=== PATIENT | female | born 1945 | race Caucasian/White ===

== ENCOUNTER 2016-08-04 20:18 | Emergency (ER) | payer BC, MEDICARE ==
[2016-08-04] MEDS ORDERED: diphenhydrAMINE INJ 50MG/ML VIAL (J1200) As Ordered ONE (21:34)
[2016-08-04] MEDS ORDERED: methylPREDNISolone INJ 125 MG/2 ML VIAL (J2930) As Ordered ONE (21:34)
[2016-08-04] MEDS ORDERED: FAMOTIDINE INJ 20MG/2ML VIAL (S0028) As Ordered ONE (21:36)
--- NOTE | 2016-08-04 22:40 | EDDOCDS ---
Nurse's Notes [facility] Name: Sabina Herring Age: 70 yrs Sex: Female : 1945 Arrival Date: 08/04/2016 Time: 20:18 Bed I3 / M3 Private MD: Liza Fabian Diagnosis: Localized swelling, mass and lump, unspecified-LOCALIZED SWELLING TO LEFT CHEEK/FACE Presentation: 08/04 20:24 Presenting complaint: Patient states: last Sunday seen at urgent care for rs3 cough/cold, given Levaquin once a day. noticed left side facial swelling this evening. Onset: The symptoms/episode began/occurred suddenly. This patient has not experienced a previous allergic reaction. Anaphylaxis evaluation, the patient reports or I have noted the following symptoms which indicate a significant risk of anaphylaxis: . The patient has been moved to a treatment room and the charge nurse or attending physician has been notified. Adult Sepsis Screening: The patient does not have new or worsening altered mentation. Adult Sepsis Screening: Patient's respiratory rate is less than 22. Systolic blood pressure is greater than 100. Patient has a qSOFA score of 0- Negative Sepsis Screen. Suicide/Homicide risk assessment- the patient denies having any suicidal and/or homicidal ideations and does not present with any other emotional, behavioral or mental health complaints. Status: Patient is not a escort service attendant or dependent. Transition of care: patient was not received from another setting of care. 20:24 Acuity: FIOR Level 3 rs3 20:24 Method Of Arrival: Walkin/Carried/Asstd rs3 Triage Assessment: 20:37 General: Appears in no apparent distress. Pain: Denies pain. Respiratory: Reports no rs3 respiratory complaints. Historical: - Allergies: PENICILLINS (Anaphylaxis); TETRACYCLINES (Anaphylaxis); Codeine Sulfate (Vomit); - Home Meds: 1. Levaquin 500 mg Oral tab once daily 2. Methylphenidate Oral 72 mg once daily 3. diltiazem HCl 360 mg Oral cp24 1 cap once daily 4. Cymbalta 30 mg Oral cpDR 1 cap once daily 5. ramipril 10 mg Oral cap 1 cap once daily 6. levothyroxine 75 mcg Oral tab 1 tab once daily 7. Ecotrin 325 mg Oral TbEC 1 tab once daily 8. Vitamin C 1,000 mg oral TbER daily 9. Vitamin D Oral 2000 units daily 10. gabapentin 100 mg Oral cap daily 11. Caltrate 600 + D 600 mg (1,500 mg)-800 unit oral chew daily 12. digoxin 125 mcg oral tab 1 tab once daily 13. Crestor 40 mg Oral tab 1 tab once daily 14. Glucosamine 750 mg oral tab daily 15. alprazolam 0.5 mg Oral tab 1 tab daily 16. [place]-3 350 mg-235 mg- 90 mg-597 mg oral cpDR 17. montelukast 10 mg oral tab 1 tab once daily 18. Bentyl 10 mg Oral cap 1 cap 3 times per day 19. Nasacort 55 mcg/actuation Nasal aero 55 mcg/Actuation daily - PMHx: ADHD; Hypertension; Fibromyalgia; Hypothyroidism; [place]; Hypercholesterolemia; Anxiety; - PSHx: Tubal ligation; Tonsillectomy; Stents, Coronary; - Social history: Smoking status: Patient states former smoker of tobacco. No barriers to communication noted, The patient speaks fluent Lao. - Family history: Not pertinent. - : The pt / caregiver states he / she is not on anticoagulants. Home medication list is obtained from the patient. - Exposure Risk Screening:: None identified. Screenin:53 Screening information is obtained from the patient. Fall risk: No risks identified. jmb Assistance ADL's: requires no assistance with activities of daily living. Abuse/DV Screen: The patient / caregiver reports he/she is: not in a situation that causes fear, pain or injury. Nutritional screening: No deficits noted. home support is adequate. 22:38 Advance Directives: Unable to assess Advance Directive status due to pt condition. cp1 Assessment: 21:53 General: Appears in no apparent distress, comfortable, Behavior is appropriate for age, jmb cooperative. Neurological: Level of Consciousness is awake, alert, obeys commands, Oriented to person, place, time, Speech is normal, Facial symmetry appears normal, Facial symmetry: tongue is midline. Cardiovascular: Capillary refill < 3 seconds Heart tones present Pulses are all present. Rhythm is regular. Respiratory: Airway is patent Respiratory effort is even, unlabored, Respiratory pattern is regular, symmetrical, Breath sounds are diminished bilaterally. GI: Abdomen is non- distended Bowel sounds present X 4 quads. Abd is soft and non tender X 4 quads. Derm: Skin is pink, warm & dry. Musculoskeletal: Range of motion intact in all extremities. Vital Signs: 20:22 BP 155 / 57; Pulse 79; Resp 18; Temp 98.9; Pulse Ox 97% ; Weight 57.61 kg; Height 5 ft. elp 3 in. (160.02 cm); Pain 0/10; 22:27 BP 116 / 55; Pulse 56; Resp 18; Temp 98.8(TE); Pulse Ox 99% on R/A; Pain 0/10; jb5 20:22 Body Mass Index 22.50 (57.61 kg, 160.02 cm) elp Vitals: 20:22 Log In Time: August 04, 2016 at 20:20. elp ED Course: 20:20 Patient visited by Kate Ramirez PCA. elp 20:20 Liza Fabian is Private Physician. elp 20:20 Patient moved to Waiting elp 20:22 Patient moved to Pre RCE elp 20:23 Patient visited by Kate Ramirez PCA. elp 20:27 Triage Initiated rs3 20:40 Patient moved to Triage 2 kmg1 21:08 Chasidy Brandon [facility]-C [facility]. dt4 21:08 Jason Knutson DO is Attending Physician. dt4 21:08 Patient visited by Chasidy Brandon PA-C. dt4 21:31 Patient moved to I3 / M3 ct3 21:39 Patient visited by Vaishali Escalante LPN. cp1 21:53 The patient / caregiver is instructed regarding the plan of care and ED course. jmgaby 21:53 Inserted saline lock: 22 gauge in left forearm and blood collected. The patient selena tolerated the procedure well. Labs drawn. (by ED staff). Sent per order to lab. 21:56 Patient visited by Victor M Vidales RN. jmb 22:26 Patient name changed from Sabina\S\\S\Nima\S\ to Sabina\S\ \S\Nima. EDMS 22:27 Patient visited by Gemini Salinas PCA. jb5 22:27 [facility] Payment Agreement was scanned into [employer] and attached to record. zo 22:28 Patient visited by Gemini Salinas PCA. jb5 22:38 Discontinued lock bleeding controlled, pressure dressing applied, No redness/swelling cp1 at site. No procedures done that require assistance. Administered Medications: 21:53 Drug: Solu-MEDROL 125 mg [Solu-Medrol 500 mg intravenous solution (125 mg)] Route: IVP; jmb Site: left hand; 22:38 Follow up: Response: No Adverse Reaction cp1 21:53 Drug: Famotidine 10 mg [famotidine 10 mg/mL intravenous solution] Route: IVPB; Infused jmb Over: 30 mins; Site: left hand; 22:38 Follow up: IV Status: Completed infusion cp1 21:53 Drug: diphenhydrAMINE 25 mg [diphenhydramine 50 mg/mL injection solution (0.5 mL)] jmb Route: IVP; Site: left hand; 22:38 Follow up: Response: No Adverse Reaction cp1 Order Results: There are currently no results for this order. Outcome: 22:25 Discharge ordered by Provider. dt4 22:39 Discharge Assessment: Patient awake, alert and oriented x 3. No cognitive and/or cp1 functional deficits noted. Patient verbalized understanding of disposition instructions. patient administered narcotics - no. The following High Risk Discharge criteria are identified: None. Discharged to home ambulatory, with family. Condition: stable. Discharge instructions given to patient, Instructed on discharge instructions, follow up and referral plans. medication usage, Demonstrated understanding of instructions, medications, Pt was receptive of discharge instructions/ teaching. Prescriptions given X 1. No special radiology studies were completed. Property sent home with patient. :Personal belongings accompany Pt. 22:40 Patient left the ED. cp1 Signatures: Dispatcher [employer] EDMS Cammie Johnson RN RN kmg1 Gemini Salinas, PATIENT FINANCIAL COORDINATOR PATIENT FINANCIAL COORDINATOR jb5 Mike Hernandez RosemaryRN RN rs3 Vaishali Escalante LPN LPN cp1 Gretel Szymanski, PATIENT FINANCIAL COORDINATOR PATIENT FINANCIAL COORDINATOR ct3 Kate Ramirez, PATIENT FINANCIAL COORDINATOR PATIENT FINANCIAL COORDINATOR matthewp Victor M Vidales RN RN jmb Tschudi, Diane, PA-C PA-C dt4 MTDD
--- NOTE | 2016-08-04 22:40 | EDDOCDS ---
Physician Documentation [facility] Name: Sabina Herring Age: 70 yrs Sex: Female : 1945 Arrival Date: 08/04/2016 Time: 20:18 Bed I3 / M3 Private MD: Liza Fabian Disposition: 08/04/16 22:25 Discharged to Home/Self Care. Impression: Localized swelling, mass and lump, unspecified - LOCALIZED SWELLING TO LEFT CHEEK/FACE. - Condition is Stable. - Discharge Instructions: Drug Allergy. - Prescriptions for Prednisone 20 mg Oral Tablet - take 2 tablets by ORAL route once daily for 4 days; 8 tablet. - Medication Reconciliation, Local Pharmacy Hours form. - Follow up: Emergency Department; When: As needed; Reason: Worsening of conditions. Follow up: Private Physician; When: 2 - 3 days; Reason: Wound/Symptom Recheck, Recheck today's complaints, Continuance of care. - Problem is new. - Symptoms are unchanged. Historical: - Allergies: PENICILLINS (Anaphylaxis); TETRACYCLINES (Anaphylaxis); Codeine Sulfate (Vomit); - Home Meds: 1. Levaquin 500 mg Oral tab once daily 2. Methylphenidate Oral 72 mg once daily 3. diltiazem HCl 360 mg Oral cp24 1 cap once daily 4. Cymbalta 30 mg Oral cpDR 1 cap once daily 5. ramipril 10 mg Oral cap 1 cap once daily 6. levothyroxine 75 mcg Oral tab 1 tab once daily 7. Ecotrin 325 mg Oral TbEC 1 tab once daily 8. Vitamin C 1,000 mg oral TbER daily 9. Vitamin D Oral 2000 units daily 10. gabapentin 100 mg Oral cap daily 11. Caltrate 600 + D 600 mg (1,500 mg)-800 unit oral chew daily 12. digoxin 125 mcg oral tab 1 tab once daily 13. Crestor 40 mg Oral tab 1 tab once daily 14. Glucosamine 750 mg oral tab daily 15. alprazolam 0.5 mg Oral tab 1 tab daily 16. [place]-3 350 mg-235 mg- 90 mg-597 mg oral cpDR 17. montelukast 10 mg oral tab 1 tab once daily 18. Bentyl 10 mg Oral cap 1 cap 3 times per day 19. Nasacort 55 mcg/actuation Nasal aero 55 mcg/Actuation daily - PMHx: ADHD; Hypertension; Fibromyalgia; Hypothyroidism; [place]; Hypercholesterolemia; Anxiety; - PSHx: Tubal ligation; Tonsillectomy; Stents, Coronary; - Social history: Smoking status: Patient states former smoker of tobacco. No barriers to communication noted, The patient speaks fluent Sinhala. - Family history: Not pertinent. - : The pt / caregiver states he / she is not on anticoagulants. Home medication list is obtained from the patient. - Exposure Risk Screening:: None identified. Vital Signs: 08/04 20:22 BP 155 / 57; Pulse 79; Resp 18; Temp 98.9; Pulse Ox 97% ; Weight 57.61 kg / 127.01 lbs; elp Height 5 ft. 3 in. (160.02 cm); Pain 0/10; 22:27 BP 116 / 55; Pulse 56; Resp 18; Temp 98.8(TE); Pulse Ox 99% on R/A; Pain 0/10; jb5 20:22 Body Mass Index 22.50 (57.61 kg, 160.02 cm) elp MDM: 21:32 IV Saline Lock ordered. dt4 21:32 Solu-MEDROL 125 mg IVP once ordered. dt4 21:33 Famotidine 10 mg IVPB once over 30 mins; dilute in 50mL of NS ordered. dt4 21:33 diphenhydrAMINE 25 mg IVP once ordered. dt4 21:40 ED course: PT WAS PLACED ON [place] RECENTLY FOR A "SUSPECTED PNEUMONIA" IN AN dt4 ER IN THE [facility] WHILE SHE WAS VISITING A FRIEND. TOOK HER 7TH PILL TODAY AND AN HOUR AFTERWARD, NOTED SWELLING TO THE LEFT CHEEK/FACE. 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 CURRENTLY NO PAIN IN THE AREA OF SWELLING, NO CHEST TIGHTNESS, SHORTNESS OF BREATH, HIVES/ITCHING. . 22:12 Financial registration complete. zo 22:27 [facility] Payment Agreement was scanned into [employer] and attached to record. zo Administered Medications: 21:53 Drug: Solu-MEDROL 125 mg [Solu-Medrol 500 mg intravenous solution (125 mg)] Route: IVP; jmb Site: left hand; 22:38 Follow up: Response: No Adverse Reaction cp1 21:53 Drug: Famotidine 10 mg [famotidine 10 mg/mL intravenous solution] Route: IVPB; Infused jmb Over: 30 mins; Site: left hand; 22:38 Follow up: IV Status: Completed infusion cp1 21:53 Drug: diphenhydrAMINE 25 mg [diphenhydramine 50 mg/mL injection solution (0.5 mL)] jmb Route: IVP; Site: left hand; 22:38 Follow up: Response: No Adverse Reaction cp1 Signatures: Mike Hernandez Rosemary, RN RN rs3 Vaishali Escalante LPN CONTROL CLERK SUBASSEMBLY cp1 Victor M Vidales RN RN jmb Chasidy Brandon PA-C PACarl dt4 The chart was reviewed and I authenticate all verbal orders and agree with the evaluation and treatment provided.Attachments: 22:27 [facility] Payment Agreement zo MTDD
--- NOTE | 2016-08-06 23:41 | EDDOCDS ---
Physician Documentation [facility] Name: Sabina Herring Age: 70 yrs Sex: Female : 1945 Arrival Date: 08/04/2016 Time: 20:18 Bed I3 / M3 Private MD: Liza Fabian Disposition: 08/04/16 22:25 Discharged to Home/Self Care. Impression: Localized swelling, mass and lump, unspecified - LOCALIZED SWELLING TO LEFT CHEEK/FACE. - Condition is Stable. - Discharge Instructions: Drug Allergy. - Prescriptions for Prednisone 20 mg Oral Tablet - take 2 tablets by ORAL route once daily for 4 days; 8 tablet. - Medication Reconciliation, Local Pharmacy Hours form. - Follow up: Emergency Department; When: As needed; Reason: Worsening of conditions. Follow up: Private Physician; When: 2 - 3 days; Reason: Wound/Symptom Recheck, Recheck today's complaints, Continuance of care. - Problem is new. - Symptoms are unchanged. Historical: - Allergies: PENICILLINS (Anaphylaxis); TETRACYCLINES (Anaphylaxis); Codeine Sulfate (Vomit); - Home Meds: 1. Levaquin 500 mg Oral tab once daily 2. Methylphenidate Oral 72 mg once daily 3. diltiazem HCl 360 mg Oral cp24 1 cap once daily 4. Cymbalta 30 mg Oral cpDR 1 cap once daily 5. ramipril 10 mg Oral cap 1 cap once daily 6. levothyroxine 75 mcg Oral tab 1 tab once daily 7. Ecotrin 325 mg Oral TbEC 1 tab once daily 8. Vitamin C 1,000 mg oral TbER daily 9. Vitamin D Oral 2000 units daily 10. gabapentin 100 mg Oral cap daily 11. Caltrate 600 + D 600 mg (1,500 mg)-800 unit oral chew daily 12. digoxin 125 mcg oral tab 1 tab once daily 13. Crestor 40 mg Oral tab 1 tab once daily 14. Glucosamine 750 mg oral tab daily 15. alprazolam 0.5 mg Oral tab 1 tab daily 16. [place]-3 350 mg-235 mg- 90 mg-597 mg oral cpDR 17. montelukast 10 mg oral tab 1 tab once daily 18. Bentyl 10 mg Oral cap 1 cap 3 times per day 19. Nasacort 55 mcg/actuation Nasal aero 55 mcg/Actuation daily - PMHx: ADHD; Hypertension; Fibromyalgia; Hypothyroidism; [place]; Hypercholesterolemia; Anxiety; - PSHx: Tubal ligation; Tonsillectomy; Stents, Coronary; - Social history: Smoking status: Patient states former smoker of tobacco. No barriers to communication noted, The patient speaks fluent Faroese. - Family history: Not pertinent. - : The pt / caregiver states he / she is not on anticoagulants. Home medication list is obtained from the patient. - Exposure Risk Screening:: None identified. Vital Signs: 08/04 20:22 BP 155 / 57; Pulse 79; Resp 18; Temp 98.9; Pulse Ox 97% ; Weight 57.61 kg / 127.01 lbs; elp Height 5 ft. 3 in. (160.02 cm); Pain 0/10; 22:27 BP 116 / 55; Pulse 56; Resp 18; Temp 98.8(TE); Pulse Ox 99% on R/A; Pain 0/10; jb5 20:22 Body Mass Index 22.50 (57.61 kg, 160.02 cm) elp MDM: 21:32 IV Saline Lock ordered. dt4 21:32 Solu-MEDROL 125 mg IVP once ordered. dt4 21:33 Famotidine 10 mg IVPB once over 30 mins; dilute in 50mL of NS ordered. dt4 21:33 diphenhydrAMINE 25 mg IVP once ordered. dt4 21:40 ED course: PT WAS PLACED ON [place] RECENTLY FOR A "SUSPECTED PNEUMONIA" IN AN dt4 ER IN THE [facility] WHILE SHE WAS VISITING A FRIEND. TOOK HER 7TH PILL TODAY AND AN HOUR AFTERWARD, NOTED SWELLING TO THE LEFT CHEEK/FACE. 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 CURRENTLY NO PAIN IN THE AREA OF SWELLING, NO CHEST TIGHTNESS, SHORTNESS OF BREATH, HIVES/ITCHING. . 22:12 Financial registration complete. zo 22:27 [facility] Payment Agreement was scanned into [employer] and attached to record. zo 08/05 12:39 T-Sheet-- Draft Copy was scanned into [employer] and attached to record. gb Administered Medications: 08/04 21:53 Drug: Solu-MEDROL 125 mg [Solu-Medrol 500 mg intravenous solution (125 mg)] Route: IVP; jmb Site: left hand; 22:38 Follow up: Response: No Adverse Reaction cp1 21:53 Drug: Famotidine 10 mg [famotidine 10 mg/mL intravenous solution] Route: IVPB; Infused jmb Over: 30 mins; Site: left hand; 22:38 Follow up: IV Status: Completed infusion cp1 21:53 Drug: diphenhydrAMINE 25 mg [diphenhydramine 50 mg/mL injection solution (0.5 mL)] jmb Route: IVP; Site: left hand; 22:38 Follow up: Response: No Adverse Reaction cp1 Signatures: Tessa Wong, Reg Reg gb Mike Hernandez RosemaryRN RN rs3 Vaishali Escalante LPN ENTRY PROCESSOR cp1 Victor M Vidales RN RN jmb Chasidy Brandon, JOHNNY PACarl dt4 The chart was reviewed and I authenticate all verbal orders and agree with the evaluation and treatment provided.Attachments: 22:27 [facility] Payment Agreement zo 08/05 12:39 T-Sheet-- Draft Copy gb Chart Complete MTDD
--- NOTE | 2016-08-06 23:41 | EDDOCDS ---
Physician Documentation [facility] Name: Sabina Herring Age: 70 yrs Sex: Female : 1945 Arrival Date: 08/04/2016 Time: 20:18 Bed I3 / M3 Private MD: Liza Fabian Disposition: 08/04/16 22:25 Discharged to Home/Self Care. Impression: Localized swelling, mass and lump, unspecified - LOCALIZED SWELLING TO LEFT CHEEK/FACE. - Condition is Stable. - Discharge Instructions: Drug Allergy. - Prescriptions for Prednisone 20 mg Oral Tablet - take 2 tablets by ORAL route once daily for 4 days; 8 tablet. - Medication Reconciliation, Local Pharmacy Hours form. - Follow up: Emergency Department; When: As needed; Reason: Worsening of conditions. Follow up: Private Physician; When: 2 - 3 days; Reason: Wound/Symptom Recheck, Recheck today's complaints, Continuance of care. - Problem is new. - Symptoms are unchanged. Historical: - Allergies: PENICILLINS (Anaphylaxis); TETRACYCLINES (Anaphylaxis); Codeine Sulfate (Vomit); - Home Meds: 1. Levaquin 500 mg Oral tab once daily 2. Methylphenidate Oral 72 mg once daily 3. diltiazem HCl 360 mg Oral cp24 1 cap once daily 4. Cymbalta 30 mg Oral cpDR 1 cap once daily 5. ramipril 10 mg Oral cap 1 cap once daily 6. levothyroxine 75 mcg Oral tab 1 tab once daily 7. Ecotrin 325 mg Oral TbEC 1 tab once daily 8. Vitamin C 1,000 mg oral TbER daily 9. Vitamin D Oral 2000 units daily 10. gabapentin 100 mg Oral cap daily 11. Caltrate 600 + D 600 mg (1,500 mg)-800 unit oral chew daily 12. digoxin 125 mcg oral tab 1 tab once daily 13. Crestor 40 mg Oral tab 1 tab once daily 14. Glucosamine 750 mg oral tab daily 15. alprazolam 0.5 mg Oral tab 1 tab daily 16. [place]-3 350 mg-235 mg- 90 mg-597 mg oral cpDR 17. montelukast 10 mg oral tab 1 tab once daily 18. Bentyl 10 mg Oral cap 1 cap 3 times per day 19. Nasacort 55 mcg/actuation Nasal aero 55 mcg/Actuation daily - PMHx: ADHD; Hypertension; Fibromyalgia; Hypothyroidism; [place]; Hypercholesterolemia; Anxiety; - PSHx: Tubal ligation; Tonsillectomy; Stents, Coronary; - Social history: Smoking status: Patient states former smoker of tobacco. No barriers to communication noted, The patient speaks fluent Setswana. - Family history: Not pertinent. - : The pt / caregiver states he / she is not on anticoagulants. Home medication list is obtained from the patient. - Exposure Risk Screening:: None identified. Vital Signs: 08/04 20:22 BP 155 / 57; Pulse 79; Resp 18; Temp 98.9; Pulse Ox 97% ; Weight 57.61 kg / 127.01 lbs; elp Height 5 ft. 3 in. (160.02 cm); Pain 0/10; 22:27 BP 116 / 55; Pulse 56; Resp 18; Temp 98.8(TE); Pulse Ox 99% on R/A; Pain 0/10; jb5 20:22 Body Mass Index 22.50 (57.61 kg, 160.02 cm) elp MDM: 21:32 IV Saline Lock ordered. dt4 21:32 Solu-MEDROL 125 mg IVP once ordered. dt4 21:33 Famotidine 10 mg IVPB once over 30 mins; dilute in 50mL of NS ordered. dt4 21:33 diphenhydrAMINE 25 mg IVP once ordered. dt4 21:40 ED course: PT WAS PLACED ON [place] RECENTLY FOR A "SUSPECTED PNEUMONIA" IN AN dt4 ER IN THE [facility] WHILE SHE WAS VISITING A FRIEND. TOOK HER 7TH PILL TODAY AND AN HOUR AFTERWARD, NOTED SWELLING TO THE LEFT CHEEK/FACE. 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 CURRENTLY NO PAIN IN THE AREA OF SWELLING, NO CHEST TIGHTNESS, SHORTNESS OF BREATH, HIVES/ITCHING. . 22:12 Financial registration complete. zo 22:27 [facility] Payment Agreement was scanned into [employer] and attached to record. zo 08/05 12:39 T-Sheet-- Draft Copy was scanned into [employer] and attached to record. gb Administered Medications: 08/04 21:53 Drug: Solu-MEDROL 125 mg [Solu-Medrol 500 mg intravenous solution (125 mg)] Route: IVP; jmb Site: left hand; 22:38 Follow up: Response: No Adverse Reaction cp1 21:53 Drug: Famotidine 10 mg [famotidine 10 mg/mL intravenous solution] Route: IVPB; Infused jmb Over: 30 mins; Site: left hand; 22:38 Follow up: IV Status: Completed infusion cp1 21:53 Drug: diphenhydrAMINE 25 mg [diphenhydramine 50 mg/mL injection solution (0.5 mL)] jmb Route: IVP; Site: left hand; 22:38 Follow up: Response: No Adverse Reaction cp1 Signatures: Tessa Wong, Reg Reg gb Mike Hernandez RosemaryRN RN rs3 Vaishali Escalante LPN COLORECTAL SURGEON cp1 Victor M Vidales RN RN jmb Chasidy Brandon, JOHNNY PACarl dt4 The chart was reviewed and I authenticate all verbal orders and agree with the evaluation and treatment provided.Attachments: 22:27 [facility] Payment Agreement zo 08/05 12:39 T-Sheet-- Draft Copy gb Chart Complete MTDD
--- NOTE | 2016-08-06 23:41 | EDDOCDS ---
Nurse's Notes [facility] Name: Sabina Herring Age: 70 yrs Sex: Female : 1945 Arrival Date: 08/04/2016 Time: 20:18 Bed I3 / M3 Private MD: Liza Fabian Diagnosis: Localized swelling, mass and lump, unspecified-LOCALIZED SWELLING TO LEFT CHEEK/FACE Presentation: 08/04 20:24 Presenting complaint: Patient states: last Sunday seen at urgent care for rs3 cough/cold, given Levaquin once a day. noticed left side facial swelling this evening. Onset: The symptoms/episode began/occurred suddenly. This patient has not experienced a previous allergic reaction. Anaphylaxis evaluation, the patient reports or I have noted the following symptoms which indicate a significant risk of anaphylaxis: . The patient has been moved to a treatment room and the charge nurse or attending physician has been notified. Adult Sepsis Screening: The patient does not have new or worsening altered mentation. Adult Sepsis Screening: Patient's respiratory rate is less than 22. Systolic blood pressure is greater than 100. Patient has a qSOFA score of 0- Negative Sepsis Screen. Suicide/Homicide risk assessment- the patient denies having any suicidal and/or homicidal ideations and does not present with any other emotional, behavioral or mental health complaints. Status: Patient is not a student services advisor or dependent. Transition of care: patient was not received from another setting of care. 20:24 Acuity: FIOR Level 3 rs3 20:24 Method Of Arrival: Walkin/Carried/Asstd rs3 Triage Assessment: 20:37 General: Appears in no apparent distress. Pain: Denies pain. Respiratory: Reports no rs3 respiratory complaints. Historical: - Allergies: PENICILLINS (Anaphylaxis); TETRACYCLINES (Anaphylaxis); Codeine Sulfate (Vomit); - Home Meds: 1. Levaquin 500 mg Oral tab once daily 2. Methylphenidate Oral 72 mg once daily 3. diltiazem HCl 360 mg Oral cp24 1 cap once daily 4. Cymbalta 30 mg Oral cpDR 1 cap once daily 5. ramipril 10 mg Oral cap 1 cap once daily 6. levothyroxine 75 mcg Oral tab 1 tab once daily 7. Ecotrin 325 mg Oral TbEC 1 tab once daily 8. Vitamin C 1,000 mg oral TbER daily 9. Vitamin D Oral 2000 units daily 10. gabapentin 100 mg Oral cap daily 11. Caltrate 600 + D 600 mg (1,500 mg)-800 unit oral chew daily 12. digoxin 125 mcg oral tab 1 tab once daily 13. Crestor 40 mg Oral tab 1 tab once daily 14. Glucosamine 750 mg oral tab daily 15. alprazolam 0.5 mg Oral tab 1 tab daily 16. Stanley-3 350 mg-235 mg- 90 mg-597 mg oral cpDR 17. montelukast 10 mg oral tab 1 tab once daily 18. Bentyl 10 mg Oral cap 1 cap 3 times per day 19. Nasacort 55 mcg/actuation Nasal aero 55 mcg/Actuation daily - PMHx: ADHD; Hypertension; Fibromyalgia; Hypothyroidism; [place]; Hypercholesterolemia; Anxiety; - PSHx: Tubal ligation; Tonsillectomy; Stents, Coronary; - Social history: Smoking status: Patient states former smoker of tobacco. No barriers to communication noted, The patient speaks fluent Estonian. - Family history: Not pertinent. - : The pt / caregiver states he / she is not on anticoagulants. Home medication list is obtained from the patient. - Exposure Risk Screening:: None identified. Screenin:53 Screening information is obtained from the patient. Fall risk: No risks identified. jmb Assistance ADL's: requires no assistance with activities of daily living. Abuse/DV Screen: The patient / caregiver reports he/she is: not in a situation that causes fear, pain or injury. Nutritional screening: No deficits noted. home support is adequate. 22:38 Advance Directives: Unable to assess Advance Directive status due to pt condition. cp1 Assessment: 21:53 General: Appears in no apparent distress, comfortable, Behavior is appropriate for age, jmb cooperative. Neurological: Level of Consciousness is awake, alert, obeys commands, Oriented to person, place, time, Speech is normal, Facial symmetry appears normal, Facial symmetry: tongue is midline. Cardiovascular: Capillary refill < 3 seconds Heart tones present Pulses are all present. Rhythm is regular. Respiratory: Airway is patent Respiratory effort is even, unlabored, Respiratory pattern is regular, symmetrical, Breath sounds are diminished bilaterally. GI: Abdomen is non- distended Bowel sounds present X 4 quads. Abd is soft and non tender X 4 quads. Derm: Skin is pink, warm & dry. Musculoskeletal: Range of motion intact in all extremities. Vital Signs: 20:22 BP 155 / 57; Pulse 79; Resp 18; Temp 98.9; Pulse Ox 97% ; Weight 57.61 kg; Height 5 ft. elp 3 in. (160.02 cm); Pain 0/10; 22:27 BP 116 / 55; Pulse 56; Resp 18; Temp 98.8(TE); Pulse Ox 99% on R/A; Pain 0/10; jb5 20:22 Body Mass Index 22.50 (57.61 kg, 160.02 cm) elp Vitals: 20:22 Log In Time: August 04, 2016 at 20:20. elp ED Course: 20:20 Patient visited by Kate Ramirez PCA. elp 20:20 Liza Fabian is Private Physician. elp 20:20 Patient moved to Waiting elp 20:22 Patient moved to Pre RCE elp 20:23 Patient visited by Kate Ramirez PCA. elp 20:27 Triage Initiated rs3 20:40 Patient moved to Triage 2 kmg1 21:08 [facility] dt4 21:08 Jason Knutson DO is Attending Physician. dt4 21:08 Patient visited by Chasidy Brandon PA-C. dt4 21:31 Patient moved to I3 / M3 ct3 21:39 Patient visited by Vaishali Escalante LPN. cp1 21:53 The patient / caregiver is instructed regarding the plan of care and ED course. jmgaby 21:53 Inserted saline lock: 22 gauge in left forearm and blood collected. The patient selena tolerated the procedure well. Labs drawn. (by ED staff). Sent per order to lab. 21:56 Patient visited by VictorM Vidales RN. jmb 22:26 Patient name changed from Sabina\S\\S\Nima\S\ to Sabina\S\ \S\Nima. EDMS 22:27 Patient visited by Gemiin Salinas PCA. jb5 22:27 [facility] Payment Agreement was scanned into [employer] and attached to record. zo 22:28 Patient visited by Gemini Salinas PCA. jb5 22:38 Discontinued lock bleeding controlled, pressure dressing applied, No redness/swelling cp1 at site. No procedures done that require assistance. 08/05 12:39 T-Sheet-- Draft Copy was scanned into [employer] and attached to record. gb Administered Medications: 08/04 21:53 Drug: Solu-MEDROL 125 mg [Solu-Medrol 500 mg intravenous solution (125 mg)] Route: IVP; jmb Site: left hand; 22:38 Follow up: Response: No Adverse Reaction cp1 21:53 Drug: Famotidine 10 mg [famotidine 10 mg/mL intravenous solution] Route: IVPB; Infused jmb Over: 30 mins; Site: left hand; 22:38 Follow up: IV Status: Completed infusion cp1 21:53 Drug: diphenhydrAMINE 25 mg [diphenhydramine 50 mg/mL injection solution (0.5 mL)] jmb Route: IVP; Site: left hand; 22:38 Follow up: Response: No Adverse Reaction cp1 Order Results: There are currently no results for this order. Outcome: 22:25 Discharge ordered by Provider. dt4 22:39 Discharge Assessment: Patient awake, alert and oriented x 3. No cognitive and/or cp1 functional deficits noted. Patient verbalized understanding of disposition instructions. patient administered narcotics - no. The following High Risk Discharge criteria are identified: None. Discharged to home ambulatory, with family. Condition: stable. Discharge instructions given to patient, Instructed on discharge instructions, follow up and referral plans. medication usage, Demonstrated understanding of instructions, medications, Pt was receptive of discharge instructions/ teaching. Prescriptions given X 1. No special radiology studies were completed. Property sent home with patient. :Personal belongings accompany Pt. 22:40 Patient left the ED. cp1 Signatures: Dispatcher [employer] EDMS Cammie Johnson, RN RN kmg1 Tessa Wong, Reg Reg Gemini Carrasco, [facility] NURSE PRACTITIONER [facility] NURSE PRACTITIONER jb5 Mike Hernandez RosemaryRN RN rs3 Vaishali Escalante LPN [employer]PER[employer] cp1 Gretel Szymanski, [facility] NURSE PRACTITIONER [facility] NURSE PRACTITIONER ct3 Kate Ramirez, [facility] NURSE PRACTITIONER [facility] NURSE PRACTITIONER elp Victor M Vidales,JESSY RN nikkib Chasidy Brandon, PA-C PA-C dt4 Chart Complete MTDD
== END 2016-08-04 22:40 | disposition home or self-care (01) ==
LOC: M ED 20:18
DX: R22.0 Localized swelling, mass and lump, head (principal); T36.95XA Adverse effect of unspecified systemic antibiotic, initial encounter; Y92.89 Other specified places as the place of occurrence of the external cause; I10 Essential (primary) hypertension; M79.7 Fibromyalgia; F90.9 Attention-deficit hyperactivity disorder, unspecified type; I25.2 Old myocardial infarction; E03.9 Hypothyroidism, unspecified; E78.00 Pure hypercholesterolemia, unspecified; F41.9 Anxiety disorder, unspecified; Z79.899 Other long term (current) drug therapy; Z79.2 Long term (current) use of antibiotics; Z88.0 Allergy status to penicillin; Z88.1 Allergy status to other antibiotic agents; Z88.5 Allergy status to narcotic agent; Z87.891 Personal history of nicotine dependence
CPT/HCPCS: 36415; 96365; 96375; 99284; J1200; J2930

== ENCOUNTER → 2016-11-15 | Outpatient (REF) | payer MEDICARE | LOC: M LAB REF 13:26 | PROVIDERS: ATTEND Nurse Practitioner Adult Health | DX: I48.0 Paroxysmal atrial fibrillation (principal) ==

== ENCOUNTER → 2016-12-20 | Outpatient (CLI) | payer MEDICARE ==
--- NOTE | 2016-12-20 17:35 | REP ---
Chest two views HISTORY: Cataract Comparison: 01/25/2012 The lungs are clear. The heart is normal in size. The pulmonary vasculature is normal in appearance. The bony structure is intact. IMPRESSION: No acute disease. Signed by Allen Mathias MD 12/20/2016 05:25 P
== END ==
LOC: M RAD 16:40
PROVIDERS: ATTEND Ophthalmology
DX: H25.12 Age-related nuclear cataract, left eye (principal)

== ENCOUNTER → 2017-02-21 | Outpatient (CLI) | payer MEDICARE ==
[~2017-02-21] MED LIST: ALPR0.5T3 PO; CALTCHW4 PO; CONC36TA4 PO; CRES40TA PO; DIGO0.12 PO; DILT1CAP46 PO; DULO1CAP2 PO; ECOT325T7 PO; FISH1000 PO; GABA-279 PO; GLUC1CAP10 PO; MONT10TA2 PO; RAMI10CA PO; SYNT75TA PO; TOBRSUS8 OS; VITA100067 PO; VITA500T PO
== END ==
LOC: M SMT 11:20
PROVIDERS: ATTEND Ophthalmology
DX: Z13.9 Encounter for screening, unspecified (principal)

== ENCOUNTER 2017-03-28 11:48 | Day surgery (SDC) | payer MEDICARE ==
[~2017-03-28] VITALS: Ht 161.3 cm; Wt 59.9 kg
[~2017-03-28 11:48] MED LIST changes: +ACETAMINOPHEN 325 MG TAB PO PRN; +BSS with VANC/TOB/EPI for EYE CASES IR ONE; +CYCLOPENTOLATE 2% OPHTH SOLN 2ML BTL XX ONE; +HEALON DUET (HEALON 10MG/ML 0.55ML & HEALON ENDOCOAT 30MG/ML 0.85ML) As Ordered ONE; +LIDOCAINE 1% SDV 5 ML VIAL As Ordered ONE; +LIDOCAINE 3.5 % 1ML OPHTH TOPICAL GEL OU ONE; +MOXIFLOXACIN IN BSS 0.25MG/0.25ML INTRACAMERAL INJ (OR EYE ONLY)(J2280) As Ordered ONE; +OFLOXACIN 0.3 % (OCUFLOX) OPTH SOL 5ML XX ONE; +PHENYLEPHRINE 2.5% OPHTH SOL 2ML XX ONE; +POVIDONE-IODINE 5% OPHTH PREP SOL 30ML As Ordered ONE; +PROPARACAINE 0.5% OPHTH SOL 15ML XX PRN; +TRIAMCINOLONE PRES FR 40 MG/ML 1ML(TRIESENCE)(OR EYE ONLY)(J3300 PER 1MG) As Ordered ONE; +TROPICAMIDE 1% OPHTH SOLN 2ML XX ONE
[2017-03-28] MEDS ORDERED: D5W/0.2% SODIUM CHLORIDE 250 ML IV ONE (12:00)
[2017-03-28] MEDS ORDERED: MIDAZOLAM INJ 2 MG/2 ML VIAL (J2250) As Ordered ONE ×2 (12:52→13:22)
[2017-03-28] MEDS ORDERED: fentaNYL 100 MCG/2 ML INJECTION (J3010) As Ordered ONE (12:54)
[2017-03-28] MEDS ORDERED: ONDANSETRON 4MG/2ML VIAL (J2405) As Ordered ONE (12:58)
[2017-03-28] MEDS ORDERED: dexameTHASONE 4 MG/ML 1ML VIAL (J1100) As Ordered ONE (12:59)
[2017-03-28] MEDS ORDERED: dexameTHASONE 4 MG/ML 1ML VIAL (J1100) IV ONE (13:15)
[2017-03-28] MEDS ORDERED: ONDANSETRON 4MG/2ML VIAL (J2405) IV ONE (13:15)
[2017-03-28] MEDS ORDERED: ACETYLCHOLINE OPHTH SOLN 1% 2ML (MIOCHOL-E) As Ordered ONE (13:34)
[2017-03-28] MEDS ORDERED: HEALON DUET (HEALON 10MG/ML 0.55ML & HEALON ENDOCOAT 30MG/ML 0.85ML) As Ordered ONE (13:35)
[2017-03-28] MEDS ORDERED: AcetaZOLAMIDE 500 MG ER CAP As Ordered ONE (14:01)
--- NOTE | 2017-03-28 14:14 | RO ---
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 PROCEDURE: Removal of intraocular lens, placement of capsular tension ring and intraocular lens exchange with Hoya +20.5 diopter in left eye. SURGEON: Geoffrey Estrada MD BLUEPRINT PROCESSOR: None. COMPLICATIONS: None. DESCRIPTION OF PROCEDURE: The patient was brought to the3 operating room and laid in the supine position. The eye was prepped and draped in a sterile fashion for ophthalmic surgery. The lid was speculum was placed. Side port incision was made, EndoCoat was injected into the anterior chamber and then a temporal clear corneal incision was made and Healon was placed underneath the capsule. After great effort, the capsule was released from the lens, taking care not to extend the zonular dialysis, which was noted to be present between 9 and 11 o'clock positions. After the lens was freed from all the adhesions, it was carefully expressed into the anterior chamber and thereby cut with the help of the lens cutters. The pieces were removed. After this, the intraocular lens was placed under Healon and right afterwards a capsular tension ring was placed. The lens was noted to be well centered, however, there still was remaining anterior capsular fibrosis along the visual axis, but the lens was well centered. At the end of the case, cefuroxime was given intracamerally. The wound was hydrated. Lid speculum was removed. Case was discussed in great detail in the waiting area with the patient. SHAQUILLE
[2017-03-28] MEDS ORDERED: LR 1,000 ML IV SCH (14:15)
[2017-03-28] MEDS ORDERED: KETOROLAC 0.5% OPHTH SOLN XX ONE (14:15)
[2017-03-28] MEDS ORDERED: ONDANSETRON 4MG/2ML VIAL (J2405) IV PRN (14:15)
[2017-03-28] MEDS ORDERED: AcetaZOLAMIDE 500 MG ER CAP PO ONE (14:15)
[2017-03-28] MEDS ORDERED: TRIMETHOBENZAMIDE 300 MG CAP PO PRN (14:15)
[2017-03-28 14:45] VITALS: BP 120/57
== END 2017-03-28 14:50 | disposition home or self-care (01) ==
LOC: M SDC 11:48
PROVIDERS: ATTEND Ophthalmology
DX: T85.29XA Other mechanical complication of intraocular lens, initial encounter (principal); I10 Essential (primary) hypertension; E78.5 Hyperlipidemia, unspecified; E03.9 Hypothyroidism, unspecified; F90.9 Attention-deficit hyperactivity disorder, unspecified type; Z79.899 Other long term (current) drug therapy; M79.7 Fibromyalgia; I25.2 Old myocardial infarction; Z98.61 Coronary angioplasty status; Z88.2 Allergy status to sulfonamides; Z88.8 Allergy status to other drugs, medicaments and biological substances
CPT/HCPCS: 66986; J1100; J2250; J2280; J2405; J3010; J3300; L8699; V2632

== ENCOUNTER → 2017-05-29 | Outpatient (REF) | payer MEDICARE ==
[~2017-05-29] MED LIST changes: -ACETAMINOPHEN 325 MG TAB PO PRN; -BSS with VANC/TOB/EPI for EYE CASES IR ONE; -CYCLOPENTOLATE 2% OPHTH SOLN 2ML BTL XX ONE; -HEALON DUET (HEALON 10MG/ML 0.55ML & HEALON ENDOCOAT 30MG/ML 0.85ML) As Ordered ONE; -LIDOCAINE 1% SDV 5 ML VIAL As Ordered ONE; -LIDOCAINE 3.5 % 1ML OPHTH TOPICAL GEL OU ONE; -MOXIFLOXACIN IN BSS 0.25MG/0.25ML INTRACAMERAL INJ (OR EYE ONLY)(J2280) As Ordered ONE; -OFLOXACIN 0.3 % (OCUFLOX) OPTH SOL 5ML XX ONE; -PHENYLEPHRINE 2.5% OPHTH SOL 2ML XX ONE; -POVIDONE-IODINE 5% OPHTH PREP SOL 30ML As Ordered ONE; -PROPARACAINE 0.5% OPHTH SOL 15ML XX PRN; -TRIAMCINOLONE PRES FR 40 MG/ML 1ML(TRIESENCE)(OR EYE ONLY)(J3300 PER 1MG) As Ordered ONE; -TROPICAMIDE 1% OPHTH SOLN 2ML XX ONE
== END ==
LOC: M LAB REF 17:39
PROVIDERS: ATTEND Nurse Practitioner Adult Health
DX: K13.0 Diseases of lips (principal)

== ENCOUNTER 2017-06-20 10:28 | Day surgery (SDC) | payer MEDICARE ==
[~2017-06-20] VITALS: Ht 160 cm; Wt 60.8 kg
[~2017-06-20 10:28] MED LIST changes: +ACETAMINOPHEN 325 MG TAB PO PRN; +BSS with VANC/TOB/EPI for EYE CASES IR ONE; +CYCLOPENTOLATE 2% OPHTH SOLN 2ML BTL OD ONE; +LIDOCAINE 3.5 % 1ML OPHTH TOPICAL GEL OU ONE; +PHENYLEPHRINE 2.5% OPHTH SOL 2ML OD ONE; +PROPARACAINE 0.5% OPHTH SOL 15ML OD PRN; +TROPICAMIDE 1% OPHTH SOLN 2ML OD ONE; +VITA100072 PO; +XIID5DRO OU
[2017-06-20] MEDS ORDERED: AcetaZOLAMIDE 500 MG ER CAP PO ONE (10:45)
[2017-06-20] MEDS ORDERED: TRIMETHOBENZAMIDE 300 MG CAP PO PRN (10:45)
[2017-06-20] MEDS ORDERED: ASPI81TA85 PO (11:48)
[2017-06-20] MEDS ORDERED: HEALON DUET (HEALON 10MG/ML 0.55ML & HEALON ENDOCOAT 30MG/ML 0.85ML) As Ordered ONE (12:18)
[2017-06-20] MEDS ORDERED: TRIAMCINOLONE PRES FR 40 MG/ML 1ML(TRIESENCE)(OR EYE ONLY)(J3300 PER 1MG) As Ordered ONE (12:18)
[2017-06-20] MEDS ORDERED: LIDOCAINE 1% SDV 5 ML VIAL As Ordered ONE (12:19)
[2017-06-20] MEDS ORDERED: POVIDONE-IODINE 5% OPHTH PREP SOL 30ML As Ordered ONE (12:20)
[2017-06-20] MEDS ORDERED: MIDAZOLAM INJ 2 MG/2 ML VIAL (J2250) As Ordered ONE (12:21)
[2017-06-20] MEDS ORDERED: fentaNYL 100 MCG/2 ML INJECTION (J3010) As Ordered ONE (12:21)
[2017-06-20] MEDS ORDERED: CEFUROXIME 1MG/0.1ML INTRACAMERAL INJ As Ordered ONE (12:31)
[2017-06-20] MEDS ORDERED: PROPOFOL 200 MG/20 ML VIAL As Ordered ONE (12:41)
[2017-06-20] MEDS ORDERED: dexameTHASONE 4 MG/ML 1ML VIAL (J1100) As Ordered ONE (12:52)
[2017-06-20] MEDS ORDERED: ONDANSETRON 4MG/2ML VIAL (J2405) As Ordered ONE (12:53)
--- NOTE | 2017-06-20 13:02 | RO ---
DATE OF PROCEDURE: 06/20/2017 PREPROCEDURE DIAGNOSIS: Cataract of right eye. POSTPROCEDURE DIAGNOSIS: Cataract of right eye. PROCEDURE: Femtosecond laser and phacoemulsification of the intraocular lens with lens implantation right eye. Intraocular lens power used was Hoya, 19 diopter. SURGEON: Geoffrey Estrada MD ROADWAY ENGINEER: None. ANESTHESIA: Local IV standby. FINDINGS: Cataract of right eye. COMPLICATIONS: None. DESCRIPTION OF PROCEDURE: The patient was brought to the operating room and laid in supine position. A lid speculum was placed, and patient was brought under the femtosecond laser. After the satisfactory placement of the patient interface, primary incision, secondary incision, and arcuate incisions with lens fragmentation was done without any complication per plan. The patients interface was then removed and lid speculum removed. Patient was placed under the microscope. The eye was prepped and draped in a sterile fashion for ophthalmic surgery. Lid speculum was placed. The secondary incision was opened, and EndoCoat was injected into the anterior chamber. The temporal clear corneal incision was then opened and capsulorrhexis removed, followed by hydrodissection. This was followed by phacoemulsification of the lens within the capsular bag. Cortical material was then aspirated, and Healon was injected into the capsular bag. Intraocular lens was then placed. Excess Healon was aspirated. Wound was hydrated. The lid speculum was removed, and patient was returned to the recovery room in stable condition.
[2017-06-20 14:00] VITALS: BP 118/57
== END 2017-06-20 14:00 | disposition home or self-care (01) ==
LOC: M SDC 10:28
PROVIDERS: ATTEND Ophthalmology
DX: H25.9 Unspecified age-related cataract (principal); I10 Essential (primary) hypertension; I25.2 Old myocardial infarction; E78.5 Hyperlipidemia, unspecified; Z79.899 Other long term (current) drug therapy; E03.9 Hypothyroidism, unspecified; Z88.0 Allergy status to penicillin; Z88.8 Allergy status to other drugs, medicaments and biological substances; Z98.61 Coronary angioplasty status; F90.9 Attention-deficit hyperactivity disorder, unspecified type; Z87.891 Personal history of nicotine dependence
CPT/HCPCS: 66984; J1100; J2250; J2405; J3010; J3300; V2632

== ENCOUNTER → 2018-05-29 | Outpatient (REF) | payer MEDICARE ==
[2018-05-29 19:23] LABS: VITAMIN B12 LEVEL > 2000 PG/ML (247-911)
== END ==
LOC: M LAB REF 17:48
DX: K13.0 Diseases of lips (principal)
CPT/HCPCS: 82607

== ENCOUNTER → 2018-06-05 | Outpatient (REF) | payer MEDICARE ==
[2018-06-05 13:29] LABS: LIPASE 136 U/L (73-393)
[2018-06-05 13:29] LABS: AMYLASE 50 U/L (25-115)
== END ==
LOC: M LAB REF 13:01
DX: R19.7 Diarrhea, unspecified (principal); R11.0 Nausea
CPT/HCPCS: 82150

== ENCOUNTER → 2018-09-04 | Outpatient (REF) | payer MEDICARE ==
[~2018-09-04] MED LIST changes: -ACETAMINOPHEN 325 MG TAB PO PRN; +ASPI81TA85 PO; -BSS with VANC/TOB/EPI for EYE CASES IR ONE; -CYCLOPENTOLATE 2% OPHTH SOLN 2ML BTL OD ONE; +GABA-1171 PO; -GABA-279 PO; -LIDOCAINE 3.5 % 1ML OPHTH TOPICAL GEL OU ONE; -PHENYLEPHRINE 2.5% OPHTH SOL 2ML OD ONE; -PROPARACAINE 0.5% OPHTH SOL 15ML OD PRN; -RAMI10CA PO; +RAMI1CAP26 PO; -TROPICAMIDE 1% OPHTH SOLN 2ML OD ONE
[2018-09-04 19:21] LABS: AMORPHOUS SEDIMENT SMALL (NEGATIVE); BACTERIA, URINE AUTO NEGATIVE (NEGATIVE); GRANULAR CAST, URINE AUTO 3 /LPF; MUCUS, URINE SMALL (NEGATIVE); RBC, URINE AUTO 4 /HPF (0-3); SQUAMOUS EPITHELIAL CELL UR AU 3 /HPF (0-6); WBC, URINE AUTO 9 /HPF (0-3)
== END ==
LOC: M LAB REF 16:41
PROVIDERS: ATTEND Nurse Practitioner Adult Health
DX: N39.0 Urinary tract infection, site not specified (principal)

== ENCOUNTER → 2019-03-26 | Outpatient (REF) | payer MEDICARE ==
[~2019-03-26] MED LIST changes: -DULO1CAP2 PO; +DULO1CAP5 PO; +VITA100018 PO; -VITA100072 PO
[2019-03-26 13:26] LABS: TOTAL PROTEIN 7.2 GM/DL (6.4-8.2)
[2019-03-26 13:47] LABS: TOTAL PROTEIN,RANDOM URINE 88.1 MG/DL (0.0-12.0); URINE TOTAL PROTEIN 88.1 MG/DL (0-12)
[2019-03-27 10:04] LABS: ALBUMIN 4.15 GM/DL (3.29-5.55); ALBUMIN % 57.6 % (55.8-66.1); ALPHA-1-GLOBULIN % 4.7 % (2.9-4.9); ALPHA-1-GLOBULINS 0.34 GM/DL (0.17-0.41); ALPHA-2-GLOBULINS % 12.5 % (7.1-11.8); BETA-1-GLOBULINS 0.44 GM/DL (0.28-0.60); BETA-1-GLOBULINS % 6.1 % (4.7-7.2); BETA-2-GLOBULINS 0.37 GM/DL (0.19-0.55); BETA-2-GLOBULINS % 5.2 % (3.2-6.5); GAMMA GLOBULIN % 13.9 % (11.1-18.8)
[2019-03-27 13:54] LABS: UPEP INTERPRETATION NO M-SPIKE NOTED; URINE VOLUME RANDOM ML
[2019-04-02 00:06] LABS: ANTI DS-DNA AB <1:10 titer (.); ANTINUCLEAR ANTIBODIES DIRECT Negative (Negative); CYTOPLASMIC NEUTROP AB ANCA-C <1:20 titer (Neg:<1:20); PERINUCLEAR AB ANCA-P <1:20 titer (Neg:<1:20)
== END ==
LOC: M LAB REF 13:03
PROVIDERS: ATTEND Internal Medicine Nephrology
DX: R80.9 Proteinuria, unspecified (principal)

== ENCOUNTER → 2019-12-10 | Outpatient (REF) | payer MEDICARE ==
[~2019-12-10] MED LIST changes: -MONT10TA2 PO; +MONT10TA4 PO; +VITA-243 PO; -VITA500T PO
== END ==
LOC: M LAB REF 16:11
PROVIDERS: ATTEND Nurse Practitioner Adult Health
DX: N18.3 Chronic kidney disease, stage 3 (moderate) (principal)

== ENCOUNTER → 2021-03-28 | Outpatient (REF) | payer MEDICARE ==
[~2021-03-28] MED LIST changes: -ASPI81TA85 PO; +ASPI81TA86 PO; +MONT10TA10 PO; -MONT10TA4 PO
== END ==
LOC: M LAB REF 17:13
PROVIDERS: ATTEND Internal Medicine Nephrology
DX: N18.30 Chronic kidney disease, stage 3 unspecified (principal)

== ENCOUNTER 2021-08-27 19:35 | Emergency (ER) | payer MEDICARE, SELFPAY ==
[~2021-08-27] VITALS: Ht 162.6 cm; Wt 74.5 kg
[~2021-08-27 19:35] MED LIST changes: +ECOT325T6 PO; -ECOT325T7 PO; -MONT10TA10 PO; +MONT10TA97 PO
[2021-08-27] MEDS ORDERED: SYNT50TA (19:51)
[2021-08-27] MEDS ORDERED: VITAD400CA FT (19:51)
[2021-08-27 22:42] VITALS: BP 143/82
== END 2021-08-27 22:47 | disposition home or self-care (01) ==
LOC: M ED 19:35
DX: S09.90XA Unspecified injury of head, initial encounter (principal); S60.211A Contusion of right wrist, initial encounter; S42.292A Other displaced fracture of upper end of left humerus, initial encounter for closed fracture; W19.XXXA Unspecified fall, initial encounter; W22.8XXA Striking against or struck by other objects, initial encounter; I10 Essential (primary) hypertension; I25.2 Old myocardial infarction; F41.8 Other specified anxiety disorders; F17.200 Nicotine dependence, unspecified, uncomplicated; Z88.0 Allergy status to penicillin; Z88.5 Allergy status to narcotic agent; Y92.009 Unspecified place in unspecified non-institutional (private) residence as the place of occurrence of the external cause; Y93.9 Activity, unspecified; Y99.9 Unspecified external cause status; Z79.899 Other long term (current) drug therapy

== ENCOUNTER 2022-04-19 10:45 | Inpatient (IN) | payer MEDICARE ==
[~2022-04-19] VITALS: Ht 162.6 cm; Wt 76.4 kg
[~2022-04-19 10:45] MED LIST changes: +SYNT50TA PO; +VITAD400CA FT
[2022-04-19] MEDS ORDERED: NS 1,000 ML IV SCH (10:55)
[2022-04-19] MEDS ORDERED: ONDANSETRON 4MG 2ML VIAL IV ONE (11:10)
[2022-04-19 11:52] LABS: BASO % 0.2 % (0.0-1.0); EOS % 0.1 % (0.0-3.0); HEMATOCRIT 42.8 % (36.0-47.0); HEMOGLOBIN 13.6 g/dl (12.0-15.5); LYMPH # 0.8 10^3/uL (1.5-5.0); LYMPH % 4.3 % (24.0-44.0); MEAN CORPUSCULAR HEMOGLOBIN 31.3 pg (27.0-33.0); MEAN CORPUSCULAR HGB CONC 31.8 g/dl (32.0-36.5); MEAN CORPUSCULAR VOLUME 98.4 fl (80.0-96.0); MONO # 0.9 10^3/uL (0.0-0.8); MONO % 4.4 % (2.0-8.0); NEUTROPHILS # 17.6 10^3/uL (1.5-8.5); NEUTROPHILS % 90.5 % (36.0-66.0); PLATELET COUNT, AUTOMATED 193 10^3/uL (150-450); RED BLOOD COUNT 4.35 10^6/uL (4.00-5.40); WHITE BLOOD COUNT 19.4 10^3/uL (4.0-10.0)
[2022-04-19 11:56] LABS: ALBUMIN 4.1 GM/DL (3.2-5.2); BILIRUBIN,DIRECT 0.1 MG/DL (0.0-0.2); BILIRUBIN,TOTAL 0.4 MG/DL (0.2-1.0); CALCIUM LEVEL 9.4 MG/DL (8.8-10.2); CREATININE FOR GFR 1.73 MG/DL (0.55-1.30); GLOMERULAR FILTRATION RATE 30.6 (>39); POTASSIUM SERUM 3.8 MEQ/L (3.5-5.1); TOTAL PROTEIN 7.7 GM/DL (6.4-8.2)
[2022-04-19 14:22] LABS: RSV AMPLIFICATION NEGATIVE (NEGATIVE)
[2022-04-19] MEDS ORDERED: ONDANSETRON 4MG 2ML VIAL IV PRN (16:25)
[2022-04-19] MEDS: NS 1,000 ML IV SCH ×2 (16:49→22:13)
[2022-04-19 17:16] LABS: BASO % 0.1 % (0.0-1.0); HEMATOCRIT 41.6 % (36.0-47.0); HEMOGLOBIN 13.1 g/dl (12.0-15.5); LYMPH # 0.9 10^3/uL (1.5-5.0); MEAN CORPUSCULAR HGB CONC 31.5 g/dl (32.0-36.5); MEAN CORPUSCULAR VOLUME 98.6 fl (80.0-96.0); MONO # 0.4 10^3/uL (0.0-0.8); MONO % 2.5 % (2.0-8.0); NEUTROPHILS # 13.7 10^3/uL (1.5-8.5); NEUTROPHILS % 91.1 % (36.0-66.0); PLATELET COUNT, AUTOMATED 186 10^3/uL (150-450); RED BLOOD COUNT 4.22 10^6/uL (4.00-5.40)
[2022-04-19 17:50] LABS: FREE T4 0.8 NG/DL (0.76-1.46); THYROID STIMULATING HORMONE 2.93 uIU/ML (0.358-3.740)
[2022-04-19] MEDS ORDERED: VITA250T7 PO (18:42)
[2022-04-19] MEDS ORDERED: HOME MED LIST COMPLETE! XX SCH (18:50)
[2022-04-19] MEDS ORDERED: amLODIPine 5 MG TAB PO ONE (19:00)
[2022-04-19 21:00] VITALS: BP 196/91
[2022-04-19] MEDS ORDERED: ROSUVASTATIN 10 MG TAB (CRESTOR) PO SCH (21:00)
[2022-04-19] MEDS ORDERED: MONTELUKAST 10 MG TAB PO SCH (21:00)
[2022-04-19] MEDS: HEPARIN SOD (PORCINE) 5000UNITS/ML 1ML VIAL/SYRINGE SQ SCH (22:29)
[2022-04-19 22:30] VITALS: BP 201/93
[2022-04-20] VITALS: BP 148/80
[2022-04-20 04:00] VITALS: BP 140/54
[2022-04-20] MEDS ORDERED: LEVOTHYROXINE 50MCG TABLET (0.05MG) PO SCH (06:00)
[2022-04-20 06:17] LABS: HEMATOCRIT 40.5 % (36.0-47.0); HEMOGLOBIN 12.6 g/dl (12.0-15.5); MEAN CORPUSCULAR HEMOGLOBIN 31.1 pg (27.0-33.0); MEAN CORPUSCULAR HGB CONC 31.1 g/dl (32.0-36.5); PLATELET COUNT, AUTOMATED 187 10^3/uL (150-450); RED BLOOD COUNT 4.05 10^6/uL (4.00-5.40); WHITE BLOOD COUNT 9.3 10^3/uL (4.0-10.0)
[2022-04-20] MEDS: HEPARIN SOD (PORCINE) 5000UNITS/ML 1ML VIAL/SYRINGE SQ SCH (06:27)
[2022-04-20 07:02] LABS: CALCIUM LEVEL 8.6 MG/DL (8.8-10.2); CREATININE FOR GFR 1.25 MG/DL (0.55-1.30); GLOMERULAR FILTRATION RATE 44.5 (>39); MAGNESIUM LEVEL 2.3 MG/DL (1.8-2.4); PHOSPHORUS LEVEL 3.6 MG/DL (2.5-4.9); POTASSIUM SERUM 3.8 MEQ/L (3.5-5.1)
[2022-04-20 08:00] VITALS: BP 140/76
[2022-04-20] MEDS: NS 1,000 ML IV SCH (08:28)
[2022-04-20] MEDS ORDERED: METHYLPHENIDATE ER 18 MG TABLET (CONCERTA) PO SCH (09:00)
[2022-04-20] MEDS ORDERED: DULoxetine 30MG CAPSULE (CYMBALTA) PO SCH (09:00)
[2022-04-20] MEDS ORDERED: ASPIRIN ENTERIC 325 MG TAB PO SCH (09:00)
[2022-04-20] MEDS ORDERED: FLUBLOK(EGG FREE)(QUAD)INFLUENZA VACC 0.5ML SYRINGE 18YRS & OLDER IM.IMMUN ONE (11:00)
== END 2022-04-20 12:03 | disposition home or self-care (01) | DRG 392 ==
LOC: M ED 10:45 → EDBD 10:45 → M ED INP 16:00 → M PCU 21:53
PROVIDERS: ADMIT Internal Medicine; ATTEND Internal Medicine
DX: K29.70 Gastritis, unspecified, without bleeding (principal); N17.9 Acute kidney failure, unspecified; E03.9 Hypothyroidism, unspecified; I10 Essential (primary) hypertension; F90.9 Attention-deficit hyperactivity disorder, unspecified type; E78.5 Hyperlipidemia, unspecified; I25.10 Atherosclerotic heart disease of native coronary artery without angina pectoris; D72.829 Elevated white blood cell count, unspecified; R91.1 Solitary pulmonary nodule; Z88.0 Allergy status to penicillin; Z88.8 Allergy status to other drugs, medicaments and biological substances; Z88.5 Allergy status to narcotic agent; Z79.899 Other long term (current) drug therapy; E73.9 Lactose intolerance, unspecified

== ENCOUNTER 2022-05-24 18:48 | Inpatient (IN) | payer MEDICARE ==
[~2022-05-24] VITALS: Ht 162.6 cm; Wt 72.7 kg
[~2022-05-24 18:48] MED LIST changes: +VITA250T7 PO
[2022-05-24 19:44] LABS: BASO % 0.3 % (0.0-1.0); EOS # 0.2 10^3/uL (0.0-0.5); HEMATOCRIT 29.7 % (36.0-47.0); HEMOGLOBIN 9.6 g/dl (12.0-15.5); LYMPH # 1.9 10^3/uL (1.5-5.0); MEAN CORPUSCULAR HEMOGLOBIN 30.9 pg (27.0-33.0); MEAN CORPUSCULAR HGB CONC 32.3 g/dl (32.0-36.5); MEAN CORPUSCULAR VOLUME 95.5 fl (80.0-96.0); MONO # 0.8 10^3/uL (0.0-0.8); MONO % 8.2 % (2.0-8.0); NEUTROPHILS # 6.5 10^3/uL (1.5-8.5); NEUTROPHILS % 69.2 % (36.0-66.0); PLATELET COUNT, AUTOMATED 201 10^3/uL (150-450); RED BLOOD COUNT 3.11 10^6/uL (4.00-5.40); WHITE BLOOD COUNT 9.4 10^3/uL (4.0-10.0)
[2022-05-24] MEDS ORDERED: ISOVUE-370 76% 100ML VIAL As Ordered ONE (19:44)
[2022-05-24] MEDS ORDERED: ACETAMINOPHEN 325 MG TAB PO ONE (21:10)
[2022-05-24] MEDS ORDERED: ONDANSETRON 4MG 2ML VIAL IV ONE (22:35)
[2022-05-24] MEDS ORDERED: traMADol 50 MG TAB PO ONE (22:35)
[2022-05-25] MEDS ORDERED: ONDANSETRON 4MG ORAL DISINTEGRATING TAB PO PRN (00:20)
[2022-05-25] MEDS ORDERED: ACETAMINOPHEN TAB 650MG DOSE (2X325MG) PO PRN (00:20)
[2022-05-25 00:45] LABS: RSV AMPLIFICATION NEGATIVE (NEGATIVE)
[2022-05-25 01:34] LABS: FERRITIN 20 NG/ML (8-252); IRON (FE) 52 UG/DL (50-170); PERCENT SATURATION 18.6 % (13.2-45.0); TOTAL IRON BINDING CAPACITY 280 UG/DL (250-450)
[2022-05-25] MEDS ORDERED: ALBU8.5H INH (02:39)
[2022-05-25] MEDS ORDERED: ROSU20TA5 PO (02:39)
[2022-05-25] MEDS ORDERED: DILT120T PO (02:39)
[2022-05-25] MEDS ORDERED: HOME MED LIST COMPLETE! XX SCH (02:45)
[2022-05-25] MEDS ORDERED: ALBUTEROL 90 MCG/ACT 8GM HFA INHALER INH PRN (02:50)
[2022-05-25] MEDS: LEVOTHYROXINE 50MCG TABLET (0.05MG) PO SCH (05:56)
[2022-05-25 06:42] LABS: HEMATOCRIT 30.9 % (36.0-47.0); HEMOGLOBIN 9.8 g/dl (12.0-15.5); MEAN CORPUSCULAR HEMOGLOBIN 30.9 pg (27.0-33.0); MEAN CORPUSCULAR HGB CONC 31.7 g/dl (32.0-36.5); MEAN CORPUSCULAR VOLUME 97.5 fl (80.0-96.0); PLATELET COUNT, AUTOMATED 182 10^3/uL (150-450); RED BLOOD COUNT 3.17 10^6/uL (4.00-5.40); WHITE BLOOD COUNT 6.1 10^3/uL (4.0-10.0)
[2022-05-25 07:14] LABS: CALCIUM LEVEL 8.6 MG/DL (8.8-10.2); CREATININE FOR GFR 1.47 MG/DL (0.55-1.30); GLOMERULAR FILTRATION RATE 36.9 (>39); MAGNESIUM LEVEL 2.2 MG/DL (1.8-2.4); POTASSIUM SERUM 4.5 MEQ/L (3.5-5.1)
[2022-05-25] MEDS: ASPIRIN ENTERIC 325 MG TAB PO SCH (09:04)
[2022-05-25] MEDS: METHYLPHENIDATE ER 18 MG TABLET (CONCERTA) PO SCH (09:06)
[2022-05-25] MEDS: DULoxetine 30MG CAPSULE (CYMBALTA) PO SCH (09:06)
[2022-05-25 10:52] LABS: FOLATE 8.4 NG/ML (>5.4); VITAMIN B12 LEVEL > 2000 PG/ML (247-911)
[2022-05-25 16:25] VITALS: BP 121/70
[2022-05-25 21:00] VITALS: BP 120/60
[2022-05-25] MEDS: MONTELUKAST 10 MG TAB PO SCH (22:10)
[2022-05-25] MEDS: ROSUVASTATIN 10 MG TAB (CRESTOR) PO SCH (22:10)
[2022-05-25] MEDS: traMADol 50 MG TAB PO PRN (22:13)
[2022-05-26 05:35] VITALS: BP 117/60
[2022-05-26] MEDS: LEVOTHYROXINE 50MCG TABLET (0.05MG) PO SCH (06:01)
[2022-05-26] MEDS: traMADol 50 MG TAB PO PRN ×2 (06:03→17:15)
[2022-05-26 09:00] VITALS: BP 122/60
[2022-05-26] MEDS: ASPIRIN ENTERIC 325 MG TAB PO SCH (11:23)
[2022-05-26] MEDS: DULoxetine 30MG CAPSULE (CYMBALTA) PO SCH (11:25)
[2022-05-26] MEDS: METHYLPHENIDATE ER 18 MG TABLET (CONCERTA) PO SCH (11:25)
[2022-05-26 11:26] LABS: BASO % 0.5 % (0.0-1.0); EOS # 0.2 10^3/uL (0.0-0.5); EOS % 2.6 % (0.0-3.0); HEMATOCRIT 28.3 % (36.0-47.0); HEMOGLOBIN 9.1 g/dl (12.0-15.5); LYMPH # 0.8 10^3/uL (1.5-5.0); LYMPH % 13.7 % (24.0-44.0); MEAN CORPUSCULAR HEMOGLOBIN 31.3 pg (27.0-33.0); MEAN CORPUSCULAR HGB CONC 32.2 g/dl (32.0-36.5); MEAN CORPUSCULAR VOLUME 97.3 fl (80.0-96.0); MONO # 0.4 10^3/uL (0.0-0.8); NEUTROPHILS # 4.4 10^3/uL (1.5-8.5); NEUTROPHILS % 75.5 % (36.0-66.0); PLATELET COUNT, AUTOMATED 166 10^3/uL (150-450); RED BLOOD COUNT 2.91 10^6/uL (4.00-5.40); WHITE BLOOD COUNT 5.9 10^3/uL (4.0-10.0)
[2022-05-26 12:05] LABS: CALCIUM LEVEL 8.5 MG/DL (8.8-10.2); CREATININE FOR GFR 1.45 MG/DL (0.55-1.30); GLOMERULAR FILTRATION RATE 37.5 (>39)
[2022-05-26 14:00] VITALS: BP 124/58
[2022-05-26] MEDS ORDERED: methocarbamoL 500 MG TAB PO PRN (20:00)
[2022-05-26] MEDS: MONTELUKAST 10 MG TAB PO SCH (20:30)
[2022-05-26] MEDS: ROSUVASTATIN 10 MG TAB (CRESTOR) PO SCH (20:30)
[2022-05-26] MEDS: NORCO, ANEXSIA 5/325MG TABLET (HYDROcodone/ACETAMINOPHEN) PO PRN (20:33)
[2022-05-26 21:00] VITALS: BP 119/60
[2022-05-27 05:30] VITALS: BP 119/64
[2022-05-27] MEDS: LEVOTHYROXINE 50MCG TABLET (0.05MG) PO SCH (06:15)
[2022-05-27] MEDS: NORCO, ANEXSIA 5/325MG TABLET (HYDROcodone/ACETAMINOPHEN) PO PRN (06:15)
[2022-05-27 08:13] LABS: BASO % 0.7 % (0.0-1.0); EOS # 0.2 10^3/uL (0.0-0.5); EOS % 3.6 % (0.0-3.0); HEMOGLOBIN 9.2 g/dl (12.0-15.5); LYMPH % 17.5 % (24.0-44.0); MEAN CORPUSCULAR HEMOGLOBIN 30.9 pg (27.0-33.0); MEAN CORPUSCULAR HGB CONC 31.7 g/dl (32.0-36.5); MEAN CORPUSCULAR VOLUME 97.3 fl (80.0-96.0); MONO # 0.5 10^3/uL (0.0-0.8); MONO % 8.1 % (2.0-8.0); NEUTROPHILS # 4.1 10^3/uL (1.5-8.5); NEUTROPHILS % 69.4 % (36.0-66.0); PLATELET COUNT, AUTOMATED 181 10^3/uL (150-450); RED BLOOD COUNT 2.98 10^6/uL (4.00-5.40); WHITE BLOOD COUNT 5.9 10^3/uL (4.0-10.0)
[2022-05-27] MEDS: ASPIRIN ENTERIC 325 MG TAB PO SCH (08:13)
[2022-05-27] MEDS: METHYLPHENIDATE ER 18 MG TABLET (CONCERTA) PO SCH (08:13)
[2022-05-27] MEDS: DULoxetine 30MG CAPSULE (CYMBALTA) PO SCH (08:13)
[2022-05-27 08:41] LABS: CALCIUM LEVEL 8.4 MG/DL (8.8-10.2); CREATININE FOR GFR 1.31 MG/DL (0.55-1.30); GLOMERULAR FILTRATION RATE 42.1 (>39); POTASSIUM SERUM 4.1 MEQ/L (3.5-5.1)
[2022-05-27 11:05] VITALS: BP 138/72
[2022-05-27] MEDS ORDERED: PERCOCET PO (13:27)
[2022-05-27] MEDS ORDERED: ASPI-424 PO (14:02)
[2022-05-27 15:40] VITALS: BP 127/60
[2022-05-27] MEDS ORDERED: traMADol 50 MG TAB PO PRN (16:50)
[2022-05-27] MEDS: ROSUVASTATIN 10 MG TAB (CRESTOR) PO SCH (21:41)
[2022-05-27] MEDS: MONTELUKAST 10 MG TAB PO SCH (21:41)
[2022-05-27 22:10] VITALS: BP 129/69
[2022-05-28 06:16] VITALS: BP 127/69
[2022-05-28] MEDS: LEVOTHYROXINE 50MCG TABLET (0.05MG) PO SCH (06:33)
[2022-05-28] MEDS ORDERED: ASPIRIN 81MG ENTERIC TABLET PO SCH (09:00)
[2022-05-28 09:48] VITALS: BP 138/68
[2022-05-28] MEDS: METHYLPHENIDATE ER 18 MG TABLET (CONCERTA) PO SCH (09:50)
[2022-05-28] MEDS: DULoxetine 30MG CAPSULE (CYMBALTA) PO SCH (09:50)
[2022-05-28 09:51] VITALS: BP 138/68
[2022-05-28] MEDS ORDERED: TRAM1CAP15 PO (10:01)
== END 2022-05-28 11:49 | disposition home health service (06) | DRG 605 ==
LOC: M ED 18:48 → EDBD 18:48 → M ED INP 23:54 → CANRESERV 05-25 13:54 → ENRESERV 05-25 13:54 → M MSPAV 05-25 16:23 → OBSVTOIN 05-26 11:40
PROVIDERS: ADMIT Family Medicine; ATTEND Internal Medicine
DX: S30.1XXA Contusion of abdominal wall, initial encounter (principal); I47.1 Supraventricular tachycardia; J45.909 Unspecified asthma, uncomplicated; E03.9 Hypothyroidism, unspecified; I12.9 Hypertensive chronic kidney disease with stage 1 through stage 4 chronic kidney disease, or unspecified chronic kidney disease; F32.A Depression, unspecified; N18.9 Chronic kidney disease, unspecified; E78.5 Hyperlipidemia, unspecified; I25.10 Atherosclerotic heart disease of native coronary artery without angina pectoris; F90.9 Attention-deficit hyperactivity disorder, unspecified type; F41.9 Anxiety disorder, unspecified; D50.0 Iron deficiency anemia secondary to blood loss (chronic); R26.9 Unspecified abnormalities of gait and mobility; Z95.2 Presence of prosthetic heart valve; D27.1 Benign neoplasm of left ovary; Z88.6 Allergy status to analgesic agent; Z79.899 Other long term (current) drug therapy; Z88.0 Allergy status to penicillin; Z88.5 Allergy status to narcotic agent; Z88.8 Allergy status to other drugs, medicaments and biological substances; W10.9XXA Fall (on) (from) unspecified stairs and steps, initial encounter; Y92.009 Unspecified place in unspecified non-institutional (private) residence as the place of occurrence of the external cause

== ENCOUNTER 2022-06-02 19:42 | Emergency (ER) | payer MEDICARE ==
[~2022-06-02] VITALS: Ht 162.6 cm; Wt 72.7 kg
[~2022-06-02 19:42] MED LIST changes: +ALBU8.5H INH; +ASPI-424 PO; +DILT120T PO; +PERCOCET PO; +ROSU20TA5 PO; +TRAM1CAP15 PO
[2022-06-02] MEDS ORDERED: ADENOSINE 6MG/2ML INJECTION (J0153) IV STA (20:02)
[2022-06-02] MEDS ORDERED: NS 1,000 ML IV ONE (20:15)
[2022-06-02 20:21] LABS: BASO % 0.4 % (0.0-1.0); EOS # 0.2 10^3/uL (0.0-0.5); EOS % 1.3 % (0.0-3.0); HEMATOCRIT 36.6 % (36.0-47.0); HEMOGLOBIN 11.6 g/dl (12.0-15.5); LYMPH # 1.5 10^3/uL (1.5-5.0); LYMPH % 13.3 % (24.0-44.0); MEAN CORPUSCULAR HEMOGLOBIN 31.5 pg (27.0-33.0); MEAN CORPUSCULAR HGB CONC 31.7 g/dl (32.0-36.5); MEAN CORPUSCULAR VOLUME 99.5 fl (80.0-96.0); MONO # 0.7 10^3/uL (0.0-0.8); MONO % 6.4 % (2.0-8.0); NEUTROPHILS # 8.9 10^3/uL (1.5-8.5); NEUTROPHILS % 77.7 % (36.0-66.0); PLATELET COUNT, AUTOMATED 324 10^3/uL (150-450); RED BLOOD COUNT 3.68 10^6/uL (4.00-5.40); WHITE BLOOD COUNT 11.4 10^3/uL (4.0-10.0)
[2022-06-02 20:33] LABS: INR 0.92; PROTHROMBIN TIME 12.6 SECONDS (12.5-14.5)
[2022-06-02 21:00] LABS: ALBUMIN 3.9 G/DL (3.2-5.2); BILIRUBIN,DIRECT 0.6 MG/DL (<0.4); BILIRUBIN,TOTAL 1.8 MG/DL (0.3-1.2); CK-MB VALUE MASS 3.4 NG/ML (<3.6); MB/CK RELATIVE INDEX 1.59 (< OR =4); TOTAL PROTEIN 6.8 G/DL (5.7-8.2)
[2022-06-03] MEDS ORDERED: ONDANSETRON 4MG 2ML VIAL IV ONE
[2022-06-03 02:00] VITALS: BP 125/56
== END 2022-06-03 11:41 | disposition home or self-care (01) ==
LOC: M ED 19:42 → EDBD 19:42 → M ED 06-03 11:41
DX: I47.1 Supraventricular tachycardia (principal); N18.9 Chronic kidney disease, unspecified; Z95.5 Presence of coronary angioplasty implant and graft; Z88.0 Allergy status to penicillin; Z88.1 Allergy status to other antibiotic agents; Z88.5 Allergy status to narcotic agent; Z88.8 Allergy status to other drugs, medicaments and biological substances; Z79.82 Long term (current) use of aspirin; Z79.899 Other long term (current) drug therapy; Z79.51 Long term (current) use of inhaled steroids
CPT/HCPCS: 71045; 80047; 80076; 82550; 82553; 83690; 84484; 85025; 85610; 93005; 93041; 94760; 96361; 96374; 96375; 99285; J0153; J2405